=== PATIENT | male | born 1940 | race Caucasian/White ===

== ENCOUNTER 2024-05-13 09:58 | Outpatient (CLI) | payer BC, MEDICARE ==
[2024-05-13] MEDS ORDERED: Magnevist 469MG/ML 20 ML VIAL ONE (13:18)
== END 2024-05-13 09:59 | disposition home or self-care (01) ==
LOC: CSHMRI 09:58
PROVIDERS: ATTEND Urology
DX: R97.20 Elevated prostate specific antigen [PSA] (principal); R93.89 Abnormal findings on diagnostic imaging of other specified body structures
CPT/HCPCS: 72197; 82565